=== PATIENT | male | born 1975 | race Caucasian/White ===

== ENCOUNTER 2020-07-04 16:30 | Emergency (ER) | payer OTHER ==
[~2020-07-04] VITALS: Ht 152.4 cm; Wt 139.7 kg
[2020-07-04] MEDS ORDERED: LOSARTAN-HCTZ1 EAC2 PO (17:07)
[2020-07-04] MEDS ORDERED: GLYXAMBI 25 MG1 EACH PO (17:08)
== END 2020-07-04 19:24 | disposition home or self-care (01) ==
LOC: ER 16:30
DX: R07.89 Other chest pain (principal); F06.4 Anxiety disorder due to known physiological condition; Z20.828 Contact with and (suspected) exposure to other viral communicable diseases

== ENCOUNTER 2021-08-26 19:29 | Emergency (ER) | payer OTHER ==
[~2021-08-26] VITALS: Ht 175.3 cm; Wt 133.8 kg
[~2021-08-26 19:29] MED LIST: GLYXAMBI 25 MG1 EACH PO; LOSARTAN-HCTZ1 EAC2 PO
[2021-08-26] MEDS ORDERED: SEGLUROMET 7.51 EAC1 (20:23)
[2021-08-26] MEDS ORDERED: LIPITOR40 M1 (20:24)
[2021-08-26] MEDS ORDERED: TROPOL (20:24)
[2021-08-26] MEDS ORDERED: NORVASC5 MG (20:24)
[2021-08-26] MEDS ORDERED: SPIRONOLACTONE 25 MG (20:25)
[2021-08-26] MEDS ORDERED: DUI500 PO (20:33)
== END 2021-08-26 20:40 | disposition home or self-care (01) ==
LOC: ER 19:29
DX: J03.90 Acute tonsillitis, unspecified (principal)

== ENCOUNTER 2024-08-26 11:04 | Emergency (ER) | payer OTHER ==
[~2024-08-26] VITALS: Ht 175.3 cm; Wt 134.3 kg
[~2024-08-26 11:04] MED LIST changes: +DUI500 PO; +LIPITOR40 M1; +NORVASC5 MG; +SEGLUROMET 7.51 EAC1; +SPIRONOLACTONE 25 MG; +TROPOL
[2024-08-26] MEDS ORDERED: HYOSCYAMINE SULFATE 0.125 MG TAB.SUBL SL ONE (13:45)
[2024-08-26] MEDS ORDERED: 0.9 % SODIUM CHLORIDE 1,000 ML IV ONE (13:45)
[2024-08-26] MEDS ORDERED: TRAMADOL HCL 50 MG TABLET PO ONE (13:45)
[2024-08-26] MEDS ORDERED: TAMSULOSIN HCL 0.4 MG CAP PO ONE (13:45)
[2024-08-26] MEDS ORDERED: ONDANSETRON HCL 2 MG/ML VIAL IV ONE (13:45)
[2024-08-26 14:29] LABS: HEMATOCRIT 45.7 % (39.0-48.0); HEMOGLOBIN 15.4 g/dL (13-16.00); MEAN CELL VOLUME 79.4 fL (80.0-100.00); MEAN CORPUSCULAR HEMOGLOBIN 26.7 pg (27.00-32.0); MEAN CORPUSCULAR HGB CONC 33.7 g/dl (32.0-36.0); PLATELET COUNT 302 K/uL (150-450); RED BLOOD COUNT 5.76 M/uL (4.00-6.00); RED CELL DISTRIBUTION WIDTH 13.9 % (11.5-14.5)
[2024-08-26 15:02] LABS: ALBUMIN 3.7 gm/dL (3.4-5.0); BILIRUBIN TOTAL 0.38 mg/dL (0.3-1.2); CALCIUM 9.4 mg/dL (8.5-10.1); CREATININE SERUM 0.76 mg/dL (0.70-1.30); GFR 109.01; GLOBULINA 4.1 G/DL (2.4-3.5); POTASSIUM 3.6 mEq/L (3.5-5.1); TOTAL PROTEIN 7.8 gm/dL (6.4-8.2)
[2024-08-26 15:09] LABS: PH,URINE 5.5 (5.0-8.0); URINE APPEARANCE Clear; URINE BILIRRUBIN Negative (NEGATIVE); URINE BLOOD Negative; URINE COLOR Yellow; URINE KETONE 15 (NEGATIVE); URINE LEUKOCYTE Negative; URINE NITRATE Negative; URINE PROTEIN Negative (NEGATIVE); URINE UROBILINOGEN 0.2 E.U./dl
[2024-08-26 15:20] LABS: URINE BACTERIA 2.5 uL (0.0-1933); URINE CAST 0.15 uL (0.0-1.40); URINE EPITHELIAL CELLS 0.9 uL (0.0-38.8); URINE GLUCOSE >=1000 MG/DL (NEGATIVE); URINE RBC 1.5 uL (0.0-20.8); URINE WBC 0.7 uL (0.0-23.2)
== END 2024-08-26 16:33 | disposition home or self-care (01) ==
LOC: ER 11:06
PROVIDERS: General Practice
DX: M54.89 Other dorsalgia (principal); R10.31 Right lower quadrant pain; K76.0 Fatty (change of) liver, not elsewhere classified; E11.9 Type 2 diabetes mellitus without complications; Z79.84 Long term (current) use of oral hypoglycemic drugs; I10 Essential (primary) hypertension; Z88.6 Allergy status to analgesic agent

== ENCOUNTER 2025-07-14 21:01 | Emergency (ER) | payer OTHER ==
[~2025-07-14] VITALS: Ht 177.8 cm; Wt 128.4 kg
[2025-07-14] MEDS ORDERED: MORPHINE SULFATE 4 MG/ML VIAL IV STA (22:39)
[2025-07-14] MEDS ORDERED: 0.9 % SODIUM CHLORIDE 1,000 ML IV STA (22:39)
[2025-07-14] MEDS ORDERED: HYOSCYAMINE SULFATE 0.125 MG TAB.SUBL SL ONE (22:45)
[2025-07-14] MEDS ORDERED: HYOSCYAMINE SULFATE 0.125 MG TAB.SUBL ONE (22:53)
[2025-07-15 00:24] LABS: BASO % 0.4 % (0.1-1.2); EOS # 0.06 (0.04-0.54); EOS % 0.6 % (0.7-7.0); LYMPH # 1.93 (1.18-3.74); LYMPH % 17.9 % (19.3-53.1); MEAN PLATELET VOLUME 9.40 fl (9.4-12.4); MONO # 0.53 (0.24-0.82); MONO % 4.9 % (4.7-12.5); NEUT # 8.20 (1.56-6.13); NEUT % 75.9 % (34.0-71.1); RED CELL DISTRIBUTION WIDTH 13.5 % (11.6-14.4)
[2025-07-15 00:53] LABS: ALT/SGPT 41.0 U/L (12-78); AST/SGOT 27.0 U/L (15-37); BILIRUBIN TOTAL 0.49 mg/dL (0.3-1.2); BUN CREA RATIO 23.0 (7.0-25.0); CREATININE SERUM 0.65 mg/dL (0.70-1.30); GFR 130.03; GLOBULINA 3.7 G/DL (2.4-3.5); GLUCOSE FASTING 124.0 mg/dL (65-100); OSMOLALITY SERUM 282.0 MOSM/KG (275-295)
[2025-07-15] MEDS ORDERED: ANUSOL-HC25 MG RECTAL (03:36)
[2025-07-15] MEDS ORDERED: DOLOGESIC-DF 51 EACH PO (03:37)
[2025-07-15] MEDS ORDERED: TRAMADOL HCL 50 MG TABLET PO STA (03:38)
== END 2025-07-15 03:54 | disposition home or self-care (01) ==
LOC: ER 21:26
DX: K62.89 Other specified diseases of anus and rectum (principal); K59.00 Constipation, unspecified; E11.9 Type 2 diabetes mellitus without complications; Z79.84 Long term (current) use of oral hypoglycemic drugs; I10 Essential (primary) hypertension; Z88.6 Allergy status to analgesic agent